=== PATIENT | female | born 1995 | race Two or more races ===

== ENCOUNTER 2017-12-04 15:41 | Emergency (ER) | payer OTHER ==
[~2017-12-04] VITALS: Ht 160 cm; Wt 59.0 kg
== END 2017-12-04 18:02 | disposition home or self-care (01) ==
LOC: ER 15:41
DX: S91.112A Laceration without foreign body of left great toe without damage to nail, initial encounter (principal); W45.8XXA Other foreign body or object entering through skin, initial encounter; Y93.89 Activity, other specified; Y92.89 Other specified places as the place of occurrence of the external cause; Y99.8 Other external cause status

== ENCOUNTER 2018-07-23 23:57 | Emergency (ER) | payer OTHER ==
[~2018-07-23] VITALS: Ht 160 cm; Wt 59.0 kg
[2018-07-24] MEDS ORDERED: FOLIC ACID1 MG PO (10:00)
== END 2018-07-24 10:14 | disposition home or self-care (01) ==
LOC: ER 23:57
DX: O20.0 Threatened abortion (principal); O34.11 Maternal care for benign tumor of corpus uteri, first trimester; Z34.01 Encounter for supervision of normal first pregnancy, first trimester; D25.2 Subserosal leiomyoma of uterus